=== PATIENT | female | born 1970 | race Two or more races ===

== ENCOUNTER 2024-02-15 04:27 | Day surgery (SDC) | payer OTHER ==
[2024-01-04 12:09] VITALS: BMI 28.8
[~2024-02-15 04:27] MED LIST: ONDANSETRON 4 MG/2 ML VIAL IVPUSH PRN
[2024-02-15] MEDS ORDERED: PROPOFOL 40 ML ONE (09:12)
[2024-02-15] MEDS ORDERED: LIDOCAINE HCL/PF 2% SDV 5ML VIAL ONE (09:12)
[2024-02-15] MEDS ORDERED: KETOROLAC TROMETHAMINE 30 MG/1 ML VIAL ONE (09:14)
[2024-02-15] MEDS ORDERED: DEXAMETHASONE SOD PHOSPHATE 4 MG/1 ML VIAL ONE (09:14)
[2024-02-15] MEDS ORDERED: ONDANSETRON 4 MG/2 ML VIAL ONE (09:14)
[2024-02-15] MEDS ORDERED: MIDAZOLAM HCL 2 MG/2 ML SINGLE DOSE VIAL ONE (09:16)
[2024-02-15] MEDS ORDERED: ceFAZolin SODIUM 1 GM VIAL ONE (09:17)
[2024-02-15] MEDS ORDERED: SODIUM CHLORIDE 0.9% P/F 10 ML VIAL IJ ONE (09:17)
[2024-02-15] MEDS ORDERED: SEVOFLURANE 250 ML BTL ONE (09:25)
[2024-02-15] MEDS ORDERED: ACETAMINOPHEN INJECTION 100 ML ONE (09:29)
[2024-02-15] MEDS ORDERED: LIDOCAINE HCL 1%, 10 MG/ML (20ML VIAL) ONE (10:23)
[2024-02-15] MEDS: ceFAZolin SODIUM 1 GM VIAL IVPB ONE ×2 (11:02)
[2024-02-15] MEDS: LIDOCAINE HCL 1% PRESERVATIVE FREE - 30ML VIAL IJ ONE ×2 (11:25)
[2024-02-15] MEDS: LACTATED RINGERS SOLUTION 1,000 ML IV SCH (14:24)
[2024-02-15 16:43] VITALS: RESP 18
[2024-02-15] MEDS ORDERED: oxyCODONE HCL 5 MG TABLET ONE (16:54)
[2024-02-15] MEDS: oxyCODONE HCL 5 MG TABLET PO PRN (16:59)
[2024-02-16 09:01] VITALS: BP 135/71; PULSE 81; TEMP 97.7
[2024-02-16] MEDS ORDERED: ACETAMINOPHEN 500 MG TABLET (FP) PO PRN (12:07)
== END 2024-02-16 13:39 | disposition home or self-care (01) ==
LOC: JASU-SURG 04:27 → JASUSAT 04:27 → J5S 18:15 → JASUSAT 02-16 13:39
PROVIDERS: ATTEND Surgery
PROC: 0HPU0JZ Removal of Synthetic Substitute from Left Breast, Open Approach (ICD-10-PCS; 2024-02-15)
PROC: 0HPT0JZ Removal of Synthetic Substitute from Right Breast, Open Approach (ICD-10-PCS; 2024-02-15)
PROC: 0HBT0ZZ Excision of Right Breast, Open Approach (ICD-10-PCS; principal; 2024-02-15 09:00)
PROC: 07T50ZZ Resection of Right Axillary Lymphatic, Open Approach (ICD-10-PCS; 2024-02-15 09:00)
DX: C50.511 Malignant neoplasm of lower-outer quadrant of right female breast (principal); C77.3 Secondary and unspecified malignant neoplasm of axilla and upper limb lymph nodes; Z17.1 Estrogen receptor negative status [ER-]; T85.43XA Leakage of breast prosthesis and implant, initial encounter; Y82.8 Other medical devices associated with adverse incidents; Y92.9 Unspecified place or not applicable
CPT/HCPCS: 19281; 19286; 76098-TC-FY; 76642-TC-RT; 81025; 88304-TC; 88307-TC; 88341-TC; 88342-TC; 94760; J0131